=== PATIENT | female | born 1960 | race Caucasian/White ===

== ENCOUNTER 2021-09-11 07:58 | Day surgery (SDC) | payer BC ==
[~2021-09-11] VITALS: Ht 170.2 cm; Wt 79.4 kg
[~2021-09-11 07:58] MED LIST: CALCI17 PO; LEVOTHYROXIN50 MCG PO; LEVOTHYROXIN88 MC1 PO; LISINOPRIL20 MG PO; [UNRECOGNIZED DRUG - MIXTURE] PO
[2021-09-11 10:27] VITALS: BP 142/74
== END 2021-09-11 10:31 | disposition home or self-care (01) | DRG 951 ==
LOC: ENDO 07:58 → ORM 08:00 → ENDO 08:00
PROVIDERS: ATTEND Surgery
PROC: 0DJD8ZZ Inspection of Lower Intestinal Tract, Via Natural or Artificial Opening Endoscopic (ICD-10-PCS; principal; 2021-09-11)
DX: Z12.11 Encounter for screening for malignant neoplasm of colon (principal); I10 Essential (primary) hypertension; Z86.010 Personal history of colon polyps